=== PATIENT | female | born 1965 | race Caucasian/White ===

== ENCOUNTER 2019-10-26 17:56 | Emergency (ER) | payer BC ==
[~2019-10-26] VITALS: Ht 160 cm; Wt 50.0 kg
[2019-10-26 18:33] LABS: BASOPHILS # (AUTO) 0.1 X10'3 (0-0.2); BASOPHILS % (AUTO) 1.2 % (0-1); EOSINOPHILS # (AUTO) 0.1 X10'3 (0-0.9); EOSINOPHILS % (AUTO) 0.9 % (0-6); HEMATOCRIT 40.3 % (35.0-45.0); HEMOGLOBIN 13.5 g/dl (12.0-16.0); LYMPHOCYTES % (AUTO) 40.7 % (21-51); MEAN CORPUSCULAR HEMOGLOBIN 30.1 PG (27.0-31.0); MEAN CORPUSCULAR HGB CONC 33.5 g/dL (33.0-36.5); MEAN CORPUSCULAR VOLUME 89.9 FL (78-98); MEAN PLATELET VOLUME 8.6 FL (7.4-10.4); MONOCYTES # (AUTO) 0.7 X10'3 (0-0.9); MONOCYTES % (AUTO) 9.1 % (2-12); NEUTROPHILS # (AUTO) 3.6 X10'3 (1.8-7.7); NEUTROPHILS % (AUTO) 48.1 % (42-75); PLATELET COUNT 229 X10'3 (140-440); RED BLOOD COUNT 4.49 X10'6 (4.20-5.60); RED CELL DISTRIBUTION WIDTH 12.5 % (11.5-14.5); WHITE BLOOD COUNT 7.5 X10'3 (4.5-11.0)
[2019-10-26 18:41] LABS: PARTIAL THROMBOPLASTIN TIME 26 SECONDS (22-32)
[2019-10-26 19:00] LABS: ALANINE AMINOTRANSFERASE 16 U/L (12-78); ALBUMIN/GLOBULIN RATIO 1.1 (1.1-1.5); ALKALINE PHOSPHATASE 66 IU/L (46-116); ANION GAP 12 (8-16); ASPARTATE AMINO TRANSFERASE 17 U/L (10-37); BLOOD UREA NITROGEN 18 MG/DL (7-18); BUN/CREATININE RATIO 17.6 (6.6-38.0); CHLORIDE 104 MMOL/L (99-107); CREATININE 1.02 MG/DL (0.40-0.90); GLUCOSE 104 MG/DL (70-104); SODIUM 142 MMOL/L (135-145); TOTAL CARBON DIOXIDE 26.5 MMOL/L (24-32); TOTAL PROTEIN 7.5 G/DL (6.4-8.2); eGFR 56 ML/MIN
[2019-10-26] MEDS ORDERED: potassium Cl 20 mEq SR tablet PO STA (19:09)
[2019-10-26] MEDS ORDERED: iohexol 350MG/ML 100ml bottle IV ONE (19:23)
[2019-10-26 20:27] VITALS: BP 141/86
== END 2019-10-26 20:54 | disposition home or self-care (01) ==
LOC: ER 17:57
DX: R07.89 Other chest pain (principal); R42 Dizziness and giddiness; R06.02 Shortness of breath; Z88.6 Allergy status to analgesic agent
CPT/HCPCS: 36415; 71045; 71275; 80053; 84484; 85025; 85610; 85730; 93005; 99285; Q9967

== ENCOUNTER 2020-11-04 18:24 | Emergency (ER) | payer BC ==
[~2020-11-04] VITALS: Ht 160 cm; Wt 59.1 kg
[2020-11-04 19:22] LABS: BASOPHILS % (AUTO) 0.3 % (0-1); EOSINOPHILS # (AUTO) 0.1 X10'3 (0-0.9); HEMATOCRIT 39.1 % (35.0-45.0); LYMPHOCYTES # (AUTO) 2.6 X10'3 (1.1-4.8); LYMPHOCYTES % (AUTO) 28.7 % (21-51); MEAN CORPUSCULAR HEMOGLOBIN 29.8 PG (27.0-31.0); MEAN CORPUSCULAR HGB CONC 33.3 g/dL (33.0-36.5); MEAN CORPUSCULAR VOLUME 89.4 FL (78-98); MONOCYTES # (AUTO) 0.6 X10'3 (0-0.9); NEUTROPHILS # (AUTO) 5.8 X10'3 (1.8-7.7); PLATELET COUNT 246 X10'3 (140-440); RED BLOOD COUNT 4.37 X10'6 (4.20-5.60); RED CELL DISTRIBUTION WIDTH 13.1 % (11.5-14.5); WHITE BLOOD COUNT 9.2 X10'3 (4.5-11.0)
[2020-11-04 19:30] LABS: ALANINE AMINOTRANSFERASE 25 U/L (12-78); ALBUMIN 4.4 G/DL (3.4-5.0); ALBUMIN/GLOBULIN RATIO 1.2 (1.1-1.5); ALKALINE PHOSPHATASE 89 IU/L (46-116); ANION GAP 12 (8-16); ASPARTATE AMINO TRANSFERASE 18 U/L (10-37); BILIRUBIN,TOTAL 0.7 MG/DL (0.1-1.0); BLOOD UREA NITROGEN 19 MG/DL (7-18); CALCIUM 9.4 MG/DL (8.5-10.1); CHLORIDE 104 MMOL/L (99-107); GLUCOSE 104 MG/DL (70-104); POTASSIUM 3.1 MMOL/L (3.5-5.1); SODIUM 143 MMOL/L (135-145); TOTAL CARBON DIOXIDE 27.3 MMOL/L (24-32); eGFR 57 ML/MIN
[2020-11-04] MEDS ORDERED: iohexol 300mg/ml 100ml inj. ONE (21:06)
[2020-11-04] MEDS ORDERED: iohexol 350MG/ML 100ml bottle IV ONE (21:08)
[2020-11-04 21:17] LABS: PARTIAL THROMBOPLASTIN TIME 25 SECONDS (22-32)
[2020-11-04] MEDS ORDERED: AZIT-72 PO (22:02)
[2020-11-04] MEDS ORDERED: ALBU8HFA PO (22:02)
[2020-11-04] MEDS ORDERED: AMOX-422 PO (22:02)
[2020-11-04] MEDS ORDERED: azithromycin 250mg tablet PO ONE (22:05)
[2020-11-04] MEDS ORDERED: potassium Cl 20 mEq SR tablet PO ONE (22:05)
[2020-11-04] MEDS ORDERED: amox tr/potassium clavulanate 875/125mg TAB PO ONE (22:05)
[2020-11-04] MEDS ORDERED: ondansetron 4mg rapidly disintigrating tab PO ONE (22:10)
[2020-11-04 22:23] VITALS: BP 129/82
== END 2020-11-04 22:26 | disposition home or self-care (01) ==
LOC: ER 18:24
DX: J18.1 Lobar pneumonia, unspecified organism (principal); Z20.822 Contact with and (suspected) exposure to COVID-19; Z79.82 Long term (current) use of aspirin; Z79.899 Other long term (current) drug therapy; Z79.2 Long term (current) use of antibiotics
CPT/HCPCS: 36415; 71045; 71275; 80053; 83880; 84484; 85025; 85610; 85730; 86885; 86900; 86901; 87635; 93005; 99285; C9803; Q9967

== ENCOUNTER 2020-11-08 10:50 | Emergency (ER) | payer BC ==
[~2020-11-08] VITALS: Ht 157.5 cm; Wt 59.1 kg
[~2020-11-08 10:50] MED LIST: ALBU8HFA PO; AMOX-422 PO; AZIT-72 PO
[2020-11-08 14:06] VITALS: BP 131/88
== END 2020-11-08 14:03 | disposition home or self-care (01) ==
LOC: ER 10:51
DX: J18.9 Pneumonia, unspecified organism (principal); Z60.2 Problems related to living alone; Z88.6 Allergy status to analgesic agent; Z79.899 Other long term (current) drug therapy
CPT/HCPCS: 71046; 99283